=== PATIENT | female | born 2000 | race Caucasian/White ===

== ENCOUNTER 2019-03-29 13:43 | Emergency (ER) | payer SELFPAY ==
[~2019-03-29] VITALS: Ht 154.9 cm; Wt 98.4 kg
== END 2019-03-29 17:51 | disposition home or self-care (01) ==
LOC: ED 13:43
DX: O20.9 Hemorrhage in early pregnancy, unspecified (principal); Z88.5 Allergy status to narcotic agent; Z3A.01 Less than 8 weeks gestation of pregnancy
CPT/HCPCS: 36415; 80048; 81001; 84702; 85025; 86900; 86901; 96372; 99284; J2790